=== PATIENT | female | born 1975 | race Caucasian/White ===

== ENCOUNTER 2021-08-18 01:19 | Emergency (ER) | payer OTHER, SELFPAY ==
[2021-08-18 01:26] VITALS: BP 123/83; PULSE 114; O2SAT 100
[2021-08-18 01:30] VITALS: BP 125/91; PULSE 112; RESP 22; TEMP 36.7; O2SAT 99; BMI 24.6
[2021-08-18 02:33] VITALS: BP 119/85; PULSE 116; RESP 18; TEMP 36.5; O2SAT 98
[2021-08-18 03:56] VITALS: BP 136/94; PULSE 114; RESP 15; O2SAT 98
--- NOTE | 2021-08-18 04:59 | ED_ITS ---
HPI - Abdominal Pain General Chief Complaint: Abdominal Pain Stated Complaint: MID STERNAL EPIGASTRIC PAIN Time Seen by Provider: 08/18/21 04:52 Source: patient Mode of arrival: EMS Limitations: no limitations History of Present Illness HPI narrative: 46-year-old female who presents emergency department for evaluati on of abdominal pain. The patient states that she ate mashed potatoes and meatballs at around 6:00 p.m.. She states that around 10:30 p.m. she developed a pressure-like pain in her epigastric area. She states the pain was constant but waxed and waned in intensity. The pain was 10/10 at its worst in 4/10 at its best. The pain did not radiate to her chest, back, neck her arms. The patient denied nausea, vomiting. She states that she has been constipated is not moved her bowels in several days. She denied frequency, urgency or dysuria. She did not take any medications for the pain. Related Data Previous Rx's Medication Instructions Recorded cimetidine 800 mg tablet 800 mg PO BID #60 tab 08/18/21 Allergies Allergy/AdvReac Type Severity Reaction Status Date / Time ibuprofen [From [facility]] Allergy Mild HIVES Verified 08/18/21 02:36 naproxen [Naprosyn] Allergy Unknown hives Verified 08/18/21 02:36 From [facility] AdvReac Mild HIVES Uncoded 08/18/21 02:36 Review of Systems Review of Systems Yes all other systems are reviewed and are negative Physical Exam Vital Signs: Vital Signs: Last Vital Signs Temp 97.7 F 08/18/21 02:33 Pulse 108 H 08/18/21 06:00 Resp 30 H 08/18/21 06:00 BP 118/72 08/18/21 06:00 Pulse Ox 98 08/18/21 06:00 Body Mass Index 24.6 Const: General: cooperative and no acute distress Orientation /consciousness: oriented to person and oriented to place Limitations: no limitations HENMT: Head: Yes normal to inspection, Yes normocephalic and Yes atraumatic Ears: external ears normal General nose exam: Normal external nose present Face and sinus: Yes normal facial exam Mouth: Normal oral and palatal mucosa present Throat: Yes posterior oropharynx normal Eyes: General: appearance normal, both eyes and all related structures Pupils: Equal, round and reactive pupils present Neck: Neck: Yes normal visual inspection, Yes no lymphadenopathy, Yes trachea midline and Yes supple Chest: Chest palpation & inspection: normal inspection of the chest and normal palpation of entire chest wall Resp: Effort & Inspection: normal respiratory effort and able to speak in complete sentences Auscultation: clear to auscultation bilaterally Cardio: Rate: regular rate Rhythm: regular rhythm Heart sounds: S1 normal heart sound present, S2 normal heart sound present and no murmurs GI: Inspection: Yes normal to inspection Palpation (GI): Soft to palpation, Tenderness to palpation present (GI) in the epigastrum (Moderate) and no guarding Auscultation: normal bowel sounds : General: Yes no CVA tenderness Back/Spine/Pelvis: Back: no CVA tenderness Skin: General skin exam: no rashes or lesions noted Neuro: General: oriented to person and oriented to place Cranial nerves: Yes CN's II-XII intact bilaterally and Yes Equal, round and reactive pupils present Cognition (Neuro): normal cognition Motor exam (neuro): 5/5 motor strength present throughout Extrem: General: Yes normal to inspection Psych: Appearance: grossly normal Speech and movement: Normal speech and movement present Affect: normal affect Attitude: cooperative Thought process: Normal thought process present Thought content: Normal thought content present Course Course Course Narrative: 46-year-old female who presents emergency department for evaluation epigastric pain which started approximately 4 hours after she ate meat balls and mesh potatoes. The differential includes was not limited to acute cholecystitis, biliary colic, gastritis, pancreatitis. I did order a CBC, CMP, lipase. Patient was treated with Maalox 30 cc, viscous lidocaine 10 cc and 10 cc orally. 0645: The patient's pain completely resolved with the above treatment. Patient's laboratory evaluation [place] [address]. Patient's AST was slightly elevated at 38 in the patient's alk-phos was slightly elevated to 154. Patient's repeat examination revealed no abdominal tenderness. This time I suspect the patient's pain was secondary to gastritis with esophagitis. The patient was started on Tagamet (cimetidine) 800 mg twice a day for 1 month. She was given verbal and printed instructions and discharged home. MDM - Abdominal Pain Lab Data Result diagrams: 08/18/21 05:06 08/18/21 05:06 Labs: Lab Results 08/18/21 08/18/21 Range/Units 05:06 05:06 WBC 13.9 H (4.8-10.8) X10*3/uL RBC 5.19 (4.20-5.50) X10*6/uL Hgb 16.0 (12.0-16.0) g/dl Hct 45.3 (37-47) % MCV 87.3 (80-98) fL MCH 30.8 (27.0-33.0) pg MCHC 35.3 H (31.0-35.0) g/dl RDW 14.6 (11.0-16.0) % Plt Count 323 (160-400) X10*3/uL MPV 9.4 (9.4-12.3) fL Immature Gran % (Auto) 0.4 (0.0-0.4) % Neut % (Auto) 77.7 H (45-73) % Lymph % (Auto) 15.4 L (20-40) % [place] % (Auto) 6.0 (2-11) % Eos % (Auto) 0.1 (0-4) % Baso % (Auto) 0.4 (0-2) % Lymph # (Auto) 2.1 (1.2-4.9) X10*3/uL [place] # (Auto) 0.8 (0.1-1.2) X10*3/uL Eos # (Auto) 0.0 (0.0-0.4) X10*3/uL Baso # (Auto) 0.1 (0.0-0.2) X10*3/uL Abs Immat Gran (auto) 0.05 H (0.00-0.03) X10*3/uL Absolute Neuts (auto) 10.8 H (2.0-8.3) X10*3/uL Absolute Nucleated RBC 0.000 (0.0-0.012) X10*3/uL Nucleated RBC % (auto) 0.0 (0.0-0.2) /100WBC Sodium 126 L (135-145) mmol/L Potassium 4.1 (3.3-5.1) mmol/L Chloride 88 L (96-108) mmol/L Carbon Dioxide 29 (22-29) mmol/L Anion Gap 12 (12-20) BUN 2 L (9-16) mg/dL Creatinine 0.55 (0.5-1.4) mg/dL Estim Creat Clear Calc 99.1 Estimated GFR > 60 Random Glucose 146 H (60-115) mg/dL Calcium 8.8 (8.4-10.2) mg/dL Total Bilirubin 0.6 (0.0-1.0) mg/dL AST 38 H (5-31) U/L ALT 15 (0-31) U/L Alkaline Phosphatase 254 H (39-117) U/L Total Protein 7.3 (6.5-8.0) g/dL Albumin 3.6 (3.5-5.0) g/dL Lipase 8 (8-78) U/L Discharge Plan Discharge Clinical Impression: Gastritis Qualifiers: Gastritis type: unspecified gastritis Chronicity: acute Gastritis bleeding: without bleeding Qualified Code(s): K29.00 - Acute gastritis without bleeding Patient Disposition: Home, Self-Care Instructions: Gastritis (ED) Additional Instructions: Your blood work was unremarkable. Your presentation is consistent with inflammation of your stomach and acid reflux sitting on to your esophagus causing chest pain. Take Tagamet (cimetidine) 800 mg tablets, 1 pill twice a day for 2-4 weeks Follow-up with your doctor in 2 days. Please return to the emergency department if your symptoms get worse or if you develop any symptoms that are concerning to you. Prescriptions: New cimetidine 800 mg tablet 800 mg PO BID Qty: 60 RF: 0 PMFSH Past Medical History PMFSH Narrative: Past medical history left breast cancer 6 years prior treated with radiation and surgery. Social history: Left breast lumpectomy. Spinal surgery, . Social history: The patient smokes 1 pack of cigarettes per day times 32 years. She drinks 2 beers per day. She smokes marijuana occasionally. Medical History Breast cancer Social History Social History Alcohol intake: current Alcohol intake frequency: a few times a week Patient Tobacco Use Status: Current everyday Tobacco user Use of substances other than those prescribed or required for medical reasons: Yes Substance Use Type: Marijuana Substance Use Frequency: Occasionally Advance Directives: No Advance Directives Information Provided: No Patient : No
[2021-08-18 05:11] LABS: Basophils Absolute Auto 0.1 X10*3/uL (0.0-0.2); Basophils Percent Auto 0.4 % (0-2); Eosinophils Percent Auto 0.1 % (0-4); Hematocrit 45.3 % (37-47); Imm Gran Abs Auto 0.05 X10*3/uL (0.00-0.03); Imm Gran Pct Auto 0.4 % (0.0-0.4); Lymphocytes Absolute Auto 2.1 X10*3/uL (1.2-4.9); Lymphocytes Percent Auto 15.4 % (20-40); Mean Corpuscular HGB Conc 35.3 g/dl (31.0-35.0); Mean Corpuscular Hemoglobin 30.8 pg (27.0-33.0); Mean Corpuscular Volume 87.3 fL (80-98); Mean Platelet Volume 9.4 fL (9.4-12.3); Monocytes Absolute Auto 0.8 X10*3/uL (0.1-1.2); Neutrophils Absolute Auto 10.8 X10*3/uL (2.0-8.3); Neutrophils Percent Auto 77.7 % (45-73); Platelet Count 323 X10*3/uL (160-400); Red Blood Count 5.19 X10*6/uL (4.20-5.50); Red Cell Distribution Width 14.6 % (11.0-16.0); White Blood Count 13.9 X10*3/uL (4.8-10.8)
[2021-08-18 05:12] LABS: MANUAL DIFF FLAG NO
[2021-08-18] MEDS: Lidocaine HCl Viscous 2 % 15 ML SOLUTION 10 ML PO (05:20)
[2021-08-18] MEDS: Magnesium Hydrox/Alum Hydrox 30 ML ORAL.SUSP PO (05:20)
[2021-08-18] MEDS: PHENobarb/Hyoscy/Atropine/Scop 10 ML ELIXIR PO (05:21)
[2021-08-18 05:43] LABS: Alanine Aminotransferase 15 U/L (0-31); Albumin Level 3.6 g/dL (3.5-5.0); Alkaline Phosphatase 254 U/L (39-117); Anion Gap 12 (12-20); Aspartate Amino Transferase 38 U/L (5-31); Bilirubin Total 0.6 mg/dL (0.0-1.0); Blood Urea Nitrogen 2 mg/dL (9-16); Calcium 8.8 mg/dL (8.4-10.2); Carbon Dioxide 29 mmol/L (22-29); Chloride 88 mmol/L (96-108); Creatinine Clr Calc Pharmacy 99.1; Estimated Glomerular Filt Rate > 60; Glucose Random 146 mg/dL (60-115); Lipase 8 U/L (8-78); Potassium 4.1 mmol/L (3.3-5.1); Sodium 126 mmol/L (135-145); Total Protein 7.3 g/dL (6.5-8.0)
[2021-08-18 06:00] VITALS: BP 118/72; PULSE 108; RESP 30; O2SAT 98
== END 2021-08-18 07:44 | disposition home or self-care (01) ==
PROVIDERS: Emergency Provider Emergency Medicine Emergency Medical Services; PCP Internal Medicine
DX: K29.00 Acute gastritis without bleeding (principal)
CPT/HCPCS: 36415; 80053; 83690; 85025; 99283; 99285